=== PATIENT | female | born 1995 | race Two or more races ===

== ENCOUNTER 2023-05-16 20:24 | Emergency (ER) | payer OTHER ==
[~2023-05-16] VITALS: Ht 157.5 cm
== END 2023-05-16 21:11 | disposition home or self-care (01) ==
LOC: ER 20:24
DX: M25.561 Pain in right knee (principal); Z88.6 Allergy status to analgesic agent

== ENCOUNTER 2023-06-02 19:02 | Emergency (ER) | payer OTHER ==
[~2023-06-02] VITALS: Ht 157.5 cm; Wt 78.9 kg
== END 2023-06-02 22:47 | disposition home or self-care (01) ==
LOC: ER 19:02
DX: R10.2 Pelvic and perineal pain (principal); Z88.6 Allergy status to analgesic agent

== ENCOUNTER 2023-07-12 14:31 | Outpatient (CLI) | payer OTHER | END 2023-07-12 14:41 | disposition home or self-care (01) | LOC: PPH VACUNA 14:31 | PROVIDERS: ATTEND Emergency Medicine Pediatric Emergency Medicine | DX: Z23 Encounter for immunization (principal) | CPT/HCPCS: 90686; G0008 ==

== ENCOUNTER 2025-08-18 10:11 | Outpatient (CLI) | payer OTHER | END 2025-08-18 10:15 | disposition home or self-care (01) | LOC: RAD 10:11 | DX: M62.830 Muscle spasm of back (principal); E78.2 Mixed hyperlipidemia ==

== ENCOUNTER 2025-09-01 10:19 | Outpatient (CLI) | payer OTHER | END 2025-09-01 10:21 | disposition home or self-care (01) | LOC: SONOGRAMA 10:19 | DX: R10.20 Pelvic and perineal pain unspecified side (principal) ==